=== PATIENT | male | born 1975 | race Caucasian/White ===

== ENCOUNTER 2016-10-25 12:53 | Emergency (ER) | payer OTHER ==
--- NOTE | ~2016-10-25 | CT71 ---
[facility] A Service of [facility] RADIOLOGY TEXT RESULTS PATIENT: QUENTIN MIRANDA LOCATION: SED : 75 UNIT #: [id number] AGE: [address]: French Haque MD SEX: M ORDER DR: [id number] [place] [id number] E MR#: [id number] Acc #: [id number] NAME: QUENTIN MIRANDA : 1975 SEX: M STUDY DATE/TIME: 10/25/2016 13:51 UNIT: SED ROOM: STUDY DESCRIPTION: CT Head Wo Contrast Attending Physician: French Haque M.D. Ordering Physician: French Haque M.D. Primary Care Physician: No Primary Care Physician MEDICAL IMAGING REPORT This report is preliminary unless electronic signature is present. EXAM Head CT no contrast 10/25/2016 PROCEDURE Axial unenhanced head CT. This CT exam was performed with one or more of the following radiation dose reduction techniques: automatic exposure control, adjustment of mA and/or kV according to patient size, and iterative reconstruction. COMPARISON STUDIES Prior CT 01/02/2014 HISTORY Confusion and nausea for 2 days. History of migraine headaches. FINDINGS The brain is structurally normal and brain parenchymal density is normal. There is no intracranial hemorrhage or mass and there is no hydrocephalus or extraaxial fluid collection. The extracranial soft tissues are normal. The skull base and calvarium are normal. IMPRESSION Normal negative unenhanced head CT. Dictated by... Joel Peck M.D. THIS IS AN ELECTRONICALLY VERIFIED REPORT [facility] A Service of [facility] RADIOLOGY TEXT RESULTS PATIENT: QUENTIN MIRANDA LOCATION: SED : 75 UNIT #: [id number] AGE: [address]: French Haque MD SEX: M ORDER DR: Joel Peck M.D. at 10/27/2016 5:30 PM TEV/ollie TD: 10/25/2016 15:20 JOB #: [id number] MEDICAL IMAGING REPORT Page 1 of 1
--- NOTE | ~2016-10-25 | EKG ---
PATIENT: QUENTIN MIRANDA UNIT #: [id number] Ventricular Rate: 68 BPM Atrial Rate: 68 BPM P-R Interval: 186 ms QRS Duration: 102 ms Q-T Interval: 400 ms QTC Calculation(Bezet): 425 ms P Ren[place]: 42 degrees Calculated R Ren[place]: -14 degrees Calculated T Ren[place]: 16 degrees Diagnosis Line: Normal sinus rhythm Diagnosis Line: Septal infarct , age undetermined Diagnosis Line: Abnormal ECG Diagnosis Line: When compared with ECG of 20-AUG-2015 14:47, Diagnosis Line: Septal infarct is now Present Diagnosis Line: Confirmed by FRANK BUENO MD ([id number]) on Diagnosis Line: 10/26/2016 4:49:58 PM INTERPRETING MD: MYLES ENG
--- NOTE | ~2016-10-25 | MR18 ---
[facility] A Service [facility] RADIOLOGY TEXT RESULTS PATIENT: QUENTIN MIRANDA LOCATION: SED : 75 UNIT #: [id number] AGE: [address]: French Haque MD SEX: M ORDER DR: [id number] [place] [id number] E MR#: [id number] Acc #: [id number] NAME: QUENTIN MIRANDA : 1975 SEX: M STUDY DATE/TIME: 10/25/2016 15:44 UNIT: SED ROOM: STUDY DESCRIPTION: MR Brain Wo Contrast Attending Physician: French Haque M.D. Ordering Physician: French Haque M.D. Primary Care Physician: No Primary Care Physician MRI CENTER REPORT This report is preliminary unless electronic signature is present. EXAM MRI of the brain without HISTORY Lightheadedness, dizziness, blurred vision, and cold sweats in a 41-year-old male patient for 2 days. No known injury. Patient complains of a migraine and right arm weakness. No cancer history. TECHNIQUE MRI of the brain was performed without contrast using routine 1.5-T wide-bore imaging technique. COMPARISON Head CT comparison is from 10/25/2016. FINDINGS There is no evidence for a recent ischemic insult on the diffusion series. Midline structures are unremarkable. There is no extra axial fluid collection. Mild periventricular and deep white matter signal abnormality is nonspecific. It could be due to history of migraine headache. Please correlate for risk factors for small vessel disease. The less likely consideration would be demyelinating disease or Lyme disease. There is no hydrocephalus. The mastoid air cells are clear. There are mucous retention cysts or polyps in the maxillary antra. There is no sinus air-fluid level. Major intracranial flow voids are maintained. There is no MRI evidence for intracranial hemorrhage. IMPRESSION 1. No acute intracranial abnormality. No recent ischemic insult is suspected. 2. Mild nonspecific white matter signal abnormality could be due to the patient's severe longstanding migraine history. Please correlate further clinically and see full discussion above. [facility] A Service [facility] RADIOLOGY TEXT RESULTS PATIENT: QUENTIN MIRANDA LOCATION: SED : 75 UNIT #: [id number] AGE: [address]: French Haque MD SEX: M ORDER DR: STAT * RESULT Dictated by... Pushpa Vazquez M.D. THIS IS AN ELECTRONICALLY VERIFIED REPORT Pushpa Vazquez M.D. at 10/25/2016 4:51 PM SUNDEEP/annalisa TD: 10/25/2016 16:32 JOB #: [id number] MRI CENTER REPORT Page 1 of 1
[~2016-10-25 12:53] MED LIST: ACULAR10 ML OT; ALBUTEROL17 GM; AUGMENTIN PO; BACTRIM DS TABL1 TA1 PO; BACTROBAN22 GM EXT; BENZONATATE PO; CLINDAMYCIN HC300 MG PO; HYDROCODON-ACE1 EAC7 PO; IBUPROFEN800 MG PO; ILOTYCIN1 GM OT; KEFLEX PO; NO MEDICATIONS; PERCOCET5/325 PO; ROBAXIN500 MG PO; TYLENOL #3 PO; VOLTAREN75 MG; VOLTAREN75 MG PO; ZOFRAN ODT4 MG PO; ZOFRANODT PO
[2016-10-25 13:34] LABS: BASOPHIL% 0.5 % (0-2.5); EOSINOPHIL% 0.5 % (0.0-7.0); HEMATOCRIT 46.4 % (38.0-50.0); INR 1.1; LYMPHOCYTE# 1.9 X10e3 (1.0-3.5); LYMPHOCYTE% 29.9 % (17.0-45.0); MEAN CELL VOLUME 97.9 FL (83-96); MEAN CORPUSCULAR HEMOGLOBIN 33.8 PG (28-34); MEAN CORPUSCULAR HGB CONC 34.5 g/dL (30-36); MEAN PLATELET VOLUME 8.5 FL (6.5-11.5); MONOCYTE# 0.5 X10e3 (0-1.0); MONOCYTE% 8.1 % (3.0-12.0); NEUTROPHIL# 3.8 X10e3 (1.5-7.1); PLATELET COUNT 167 X10e3 (140-420); PROTHROMBIN TIME (PATIENT) 11.9 SECONDS (9.5-12.4); RED BLOOD COUNT 4.74 X10e (3.90-5.60); RED CELL DISTRIBUTION WIDTH 13.3 % (11.0-15.5); WHITE BLOOD COUNT 6.2 X10e3 (4.0-10.5)
[2016-10-25 13:37] LABS: DIFF IND NO
[2016-10-25 13:41] LABS: PARTIAL THROMBOPLASTIN TIME 28.3 SECONDS (25.6-38.1)
[2016-10-25 13:43] LABS: ALBUMIN SERUM 4.6 g/dL (3.5-5.0); BILIRUBIN, DIRECT 0.2 mg/dL (0.0-0.2); BILIRUBIN,INDIRECT 0.7 mg/dL (0.0-0.9); BILIRUBIN,TOTAL 0.9 mg/dL (0.2-2.0); BUN/CREATININE RATIO 16.25; CALCIUM SERUM 9.5 mg/dL (8.4-10.2); CREATININE SERUM 0.8 mg/dL (0.6-1.4); POTASSIUM 3.5 mmol/L (3.5-5.1); PROTEIN TOTAL SERUM 8.1 g/dL (6.0-8.3)
[2016-10-25 13:55] LABS: POC - CKMB 1.2 ng/mL (0.0-7.9); POC - TROPONIN <0.05 ng/mL (<=0.05)
== END 2016-10-25 17:38 | disposition home or self-care (01) ==
LOC: SED 12:53
PROVIDERS: Emergency Medicine
DX: G43.109 Migraine with aura, not intractable, without status migrainosus (principal); Z87.891 Personal history of nicotine dependence
CPT/HCPCS: 70450; 70551; 80048; 80076; 82553; 82947; 84484; 85025; 85610; 85730; 93005; 96361; 96374; 96375; 96376; 99284; J1170; J1885; J2270; J2405